=== PATIENT | male | born 1970 | race Caucasian/White ===

== ENCOUNTER 2025-04-18 07:07 | Day surgery (SDC) | payer MEDICAID ==
[~2025-04-18 07:07] MED LIST: Midazolam 1 MG/ML 2 ML SDV ONE; Propofol 200 MG/20 ML SDV ONE
[2025-04-18] MEDS ORDERED: Lidocaine 1% 0 ML ONE (07:24)
[2025-04-18] MEDS: Lactated Ringers 1,000 ML IV SCH (07:30)
[2025-04-18] MEDS ORDERED: Propofol 200 MG/20 ML SDV ONE ×2 (07:45)
== END 2025-04-18 09:10 | disposition home or self-care (01) ==
LOC: JD.SDS 07:07
PROVIDERS: ATTEND Surgery
DX: Z12.11 Encounter for screening for malignant neoplasm of colon (principal); D12.5 Benign neoplasm of sigmoid colon; I10 Essential (primary) hypertension
CPT/HCPCS: 45385; J2704; J7120; 00811; J2003; J2250